=== PATIENT | female | born 1935 | race Caucasian/White ===

== ENCOUNTER 2017-09-12 22:45 | Inpatient (IN) | payer MEDICARE ==
[2017-09-12] VITALS (9 sets, daily range): BP systolic 86–130; BP diastolic 55–64; PULSE 60–101; RESP 14–18; TEMP 98.9–99.9; O2SAT 97–100
[~2017-09-12] VITALS: Ht 165.1 cm; Wt 64.5 kg
[2017-09-12] MEDS ORDERED: SODIUM CHLOR 0.9% 250 ML INJ 250 ML IV ONE (23:00)
[2017-09-12] MEDS ORDERED: SODIUM CHLOR 0.9% 1000 ML INJ 1,000 ML IV ONE ×2 (23:00)
[2017-09-12] MEDS ORDERED: SODIUM CHLORIDE 0.9% FLUSH 10 ML FLUSH IVF PRN (23:00)
[2017-09-12] MEDS ORDERED: TERBUTALINE INJ 1 MG/ML AMP SQ PRN (23:30)
[2017-09-12] MEDS ORDERED: NOREPINEPHRINE-DEXTROSE DRIP 250 ML IV PRN (23:30)
[2017-09-12 23:37] LABS: BLOOD GAS BASE EXCESS -6.7 mmol/L (-2-2); BLOOD GAS CARBOXYHEMOGLOBIN 1.5 % (0-4); BLOOD GAS HCO3 19 mmol/L (22-26); BLOOD GAS METHEMOGLOBIN 0.5 % (0-2); BLOOD GAS O2 HGB SATURATION 98 % (90-100); BLOOD GAS OXYGEN CONTENT 17.9 Vol % (12.0-20.0); BLOOD GAS PCO2 39 mmHg (38-42); BLOOD GAS PO2 418 mmHG (61-120); BLOOD GAS TOTAL HGB 12.2 G/DL (12.0-16.0); CRITICAL VALUE NO; DRAW SITE RT RADIAL; FIO2 100 %; NUMBER OF ARTERIAL PUNCTURES 2; OXYGEN DEVICE VENTILATOR; STAT YES; TEMP CORR TO 98.6; ULNAR PULSE PRESENT; VENT SETTINGS AC/14/500/PEEP5
--- NOTE | 2017-09-12 23:42 | PD ---
HPI . Respiratory distress Chief Complaint: Code Blue Time Seen by Provider: 22:51 Travel History International Travel<30 days: No Contact w/Intl Traveler<30days: No Traveled to known affect area: No History of Present Illness HPI This patient presented to us by [facility] intubated for respiratory distress. They state that they were called to the [facility] for acute respiratory distress. They found her to be hypotensive at about 80. She had agonal respirations. She was subsequently intubated by them. An IV was started and she received approximately 500 cc of IV fluids in route. 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 Done at an outside hospital. Her postoperative course was complicated by acute blood loss. She received 11 units of blood, 4 units of FFP, 3 units of cryoprecipitate it looks like she was discharged to a [facility] on about 09/03. And 2 platelet packs. She also developed atrial fibrillation which was treated with amiodarone. Anticoagulation was deferred secondary to the bleeding. She was discharged to a [facility] on about 09/03. CBC & BMP Diagram 09/12/17 22:50 Total Protein 5.2 L, Albumin 2.4 L, Calcium Level 7.3 *L, Magnesium Level 2.2, Alkaline Phosphatase 165 H, Aspartate Amino Transf (AST/SGOT) 257 H, Alanine Aminotransferase (ALT/SGPT) 175 H, Total Bilirubin 1.3 H ABG Test 09/12/17 23:24 Arterial Blood Carboxyhemoglobin 1.5 % Arterial Blood Methemoglobin 0.5 % Arterial Blood Oxygen Content 17.9 Vol % Arterial Blood Partial Pressure CO2 39 mmHg Arterial Blood Partial Pressure O2 418 mmHG H Arterial Blood pH 7.30 L Blood Gas Base Excess -6.7 mmol/L L Blood Gas HCO3 19 mmol/L L Blood Gas Hemoglobin 12.2 G/DL Blood Gas Inspired Oxygen 100 % Blood Gas Oxygen Saturation 98 % Blood Gas Ventilator Setting AC/14/500/PEEP5 Oxygen Delivery Device VENTILATOR LA 3.4 trop 0.03. CK 57 UA>>mod LE, 1 WBC CXR>>Endotracheal tube tip is just above the level of the kraig. Right subclavian central line descends into the upper right atrium. There is no evidence of pneumothorax. There is patchy mild parenchymal lung opacity bilaterally. Cardiac contours are grossly satisfactory for technique and projection. There is mild gaseous distention of the stomach This patient is on Levophed. She received 1 unit of PRBCs. We then learned that her initial blood draw was probably somehow diluted. She has had Lasix. I do not yet know the etiology of her hypotension and near respiratory arrest. [facility] Social History Tobacco Use: No Allergies-Medications (Allergen,Severity, Reaction): Coded Allergies: codeine (Verified Allergy, Unknown, 09/12/17) sulfadiazine (Verified Allergy, Unknown, 09/12/17) Reported Meds & Prescriptions Reported Meds & Active Scripts Active Reported Xanax (Alprazolam) 0.5 Mg Tab 0.5 Mg PO Q8H PRN Ultram (Tramadol HCl) 50 Mg Tab 50 Mg PO Q6H PRN Oxygen (O2) Device Liter YUNG.CANULA CONTINUOUS Oxygen Concentrator Portable Gaseous 2 L/min via Nasal Canula Continuous For 99 months [place] (Hydrocodone-Acetaminophen) 5-325 mg Tab 1 Tab PO Q4H PRN Tylenol (Acetaminophen) 325 Mg Tab 650 Mg PO Q4H PRN Keflex (Cephalexin) 500 Mg Capsule 500 Mg PO TID Duoneb (Ipratropium-Albuterol Neb) 0.5-2.5 Mg/3 Ml Neb 1 Nebule INH TID Amiodarone (Amiodarone HCl) 400 Mg Tab 400 Mg PO TID Vitamin C (Ascorbic Acid) 250 Mg Tab 500 Mg PO BID Metoprolol Tartrate 25 Mg Tab 25 Mg PO BID Docusate Sodium 100 Mg Cap 100 Mg PO BID Zinc Sulfate 220 Mg (50 Mg Zinc) Cap 220 Mg PO DAILY Potassium Chloride ER (Potassium Chloride) 20 Meq Tab 20 Meq PO DAILY Potassium Chloride ER (Potassium Chloride) 10 Meq Cap 10 Meq PO DAILY Polyethylene Glycol 3350 Powder (Polyethylene Glycol) 17 Gram Pow 17 Gm PO DAILY Multi-Vitamin Daily (Multiple Vitamin) 1 Tab Tab 1 Tab PO DAILY Lasix (Furosemide) 20 Mg Tab 20 Mg PO DAILY Lasix (Furosemide) 40 Mg Tab 40 Mg PO DAILY PRN Famotidine 20 Mg Tab 20 Mg PO DAILY Atorvastatin (Atorvastatin Calcium) 40 Mg Tab 40 Mg PO HS Aspirin 81 Mg Chew 81 Mg CHEW DAILY Review of Systems ROS Limitations: Clinical Condition, Unresponsive Physical Exam Narrative GENERAL: She is unresponsive to any painful stimuli. SKIN: Pale. She has scattered bruising including the left axilla, right groin area, left groin area. She has a wound on the left medial 5 which is draining purulent and malodorous material. HEAD: Normocephalic. Atraumatic. EYES: Pupils are fixed. No reaction to light. ENT: No nasal bleeding or discharge. Mucous membranes pink and moist. NECK: Trachea midline. Full range of motion without pain.. CARDIOVASCULAR: Regular rate and rhythm. Her first blood pressure here was normal but she has subsequently dropped back down to a systolic of about 80. RESPIRATORY: Intubated. Initial examination showed breath sounds laterally on the right than the left. The tube was withdrawn by 3 cm. Breath sounds are now equal. GASTROINTESTINAL: Abdomen soft. Nondistended. MUSCULOSKELETAL: No obvious deformities. NEUROLOGICAL: [place] Coma Score is 3. She is flaccid. PSYCHIATRIC: Unable to evaluate Data Data Last Documented VS Vital Signs Date Time Temp Pulse Resp B/P (MAP) Pulse Ox O2 Delivery O2 Flow Rate FiO2 09/13/17 00:28 65 14 91/61 (71) 95 Ventilator 60 09/13/17 00:00 98.7 Orders Orders Electrocardiogram (09/12/17 22:51) Ckmb (Isoenzyme) Profile (09/12/17 22:51) Complete Blood Count With Diff (09/12/17 22:51) Comprehensive Metabolic Panel (09/12/17 22:51) Magnesium (Mg) (09/12/17 22:51) Prothrombin Time / Inr (Pt) (09/12/17 22:51) Act Partial Throm Time (Ptt) (09/12/17 22:51) Troponin I (09/12/17 22:51) Chest, Single Ap (09/12/17 22:51) Ecg Monitoring (09/12/17 22:51) Bilateral Bp Monitoring (09/12/17 22:51) Iv Access Insert/Monitor (09/12/17 22:51) Oximetry (09/12/17 22:51) Oxygen Administration (09/12/17 22:51) Sodium Chloride 0.9% Flush (Ns Flush) (09/12/17 23:00) Sodium Chlor 0.9% 1000 Ml Inj (Ns 1000 M (09/12/17 23:00) Sodium Chlor 0.9% 1000 Ml Inj (Ns 1000 M (09/12/17 23:00) Insert Temp Sensing Romano Cath (09/12/17 22:51) Red Blood Cells (Rbc) (09/12/17 22:54) Blood Product Administration (09/12/17 22:54) Sodium Chlor 0.9% 250 Ml Inj (Ns 250 Ml (09/12/17 23:00) Type And Screen (09/12/17 22:54) Lactic Acid Sepsis Protocol (09/12/17 23:00) Urinalysis - C+S If Indicated (09/12/17 23:00) ^ Infusion (09/12/17 ) Norepinephrine-Dextrose Drip (Levophed-D (09/12/17 23:30) Terbutaline Inj (Brethine Inj) (09/12/17 23:30) Blood Culture (09/12/17 23:21) Wound Culture And Gram Stain (09/12/17 23:27) Arterial Blood Gas (Abg) (09/12/17 23:24) Neurological Rass Scale Q30MX2,Q2HX4,Q4H (09/12/17 23:49) ^ Infusion (09/12/17 23:49) Fentanyl Drip (Fentanyl Drip) (09/13/17 00:00) Midazolam 100 Mg/100 Ml Inj (Versed Inj) (09/13/17 00:00) Neurological Rass Scale Q30MX2,Q2HX4,Q4H (09/12/17 23:49) ^ Orogastric Tube (09/12/17 23:50) Restraints Non-Violent VARGAS.Q3H (09/12/17 23:50) Midazolam 100 Mg/100 Ml Inj (Versed Inj) (09/12/17 23:55) Fentanyl Drip (Fentanyl Drip) (09/12/17 23:56) D-Dimer (09/13/17 00:58) Admit Order (Ed Use Only) (09/13/17 ) Alcohol Rubber / Telemetry VARGAS.Q8H (09/13/17 00:58) Vital Signs (Adult) Q4H (09/13/17 00:58) Diet Npo (09/13/17 Breakfast) Activity Bed Rest (09/13/17 00:58) Notify Dr: Other (09/13/17 00:58) Labs Laboratory Tests Test 09/12/17 22:50 09/12/17 23:24 09/12/17 23:28 White Blood Count 10.6 TH/MM3 Red Blood Count 4.12 MIL/MM3 Hemoglobin 12.4 GM/DL Hematocrit 38.4 % Mean Corpuscular Volume 93.2 FL Mean Corpuscular Hemoglobin 30.0 PG Mean Corpuscular Hemoglobin Concent 32.2 % Red Cell Distribution Width 20.9 % Platelet Count 188 TH/MM3 Mean Platelet Volume 8.8 FL Neutrophils (%) (Auto) 87.6 % Lymphocytes (%) (Auto) 4.3 % Monocytes (%) (Auto) 7.7 % Eosinophils (%) (Auto) 0.2 % Basophils (%) (Auto) 0.2 % Neutrophils # (Auto) 9.2 TH/MM3 Lymphocytes # (Auto) 0.5 TH/MM3 Monocytes # (Auto) 0.8 TH/MM3 Eosinophils # (Auto) 0.0 TH/MM3 Basophils # (Auto) 0.0 TH/MM3 CBC Comment DIFF FINAL Differential Comment Prothrombin Time 18.3 SEC Prothromb Time International Ratio 1.6 RATIO Activated Partial Thromboplast Time 30.2 SEC Blood Urea Nitrogen 43 MG/DL Creatinine 1.97 MG/DL Random Glucose 151 MG/DL Total Protein 5.2 GM/DL Albumin 2.4 GM/DL Calcium Level 7.3 MG/DL Magnesium Level 2.2 MG/DL Alkaline Phosphatase 165 U/L Aspartate Amino Transf (AST/SGOT) 257 U/L Alanine Aminotransferase (ALT/SGPT) 175 U/L Total Bilirubin 1.3 MG/DL Sodium Level 144 MEQ/L Potassium Level 5.0 MEQ/L Chloride Level 109 MEQ/L Carbon Dioxide Level 23.6 MEQ/L Anion Gap 11 MEQ/L Estimat Glomerular Filtration Rate 24 ML/MIN Protein Corrected Calcium 8.3 MG/DL Total Creatine Kinase 57 U/L Troponin I 0.03 NG/ML Blood Gas Puncture Site RT RADIAL Blood Gas Patient Temperature 98.6 Blood Gas HCO3 19 mmol/L Blood Gas Base Excess -6.7 mmol/L Blood Gas Oxygen Saturation 98 % Arterial Blood pH 7.30 Arterial Blood Partial Pressure CO2 39 mmHg Arterial Blood Partial Pressure O2 418 mmHG Arterial Blood Oxygen Content 17.9 Vol % Arterial Blood Carboxyhemoglobin 1.5 % Arterial Blood Methemoglobin 0.5 % Blood Gas Hemoglobin 12.2 G/DL Oxygen Delivery Device VENTILATOR Blood Gas Ventilator Setting AC/14/500/PEEP5 Blood Gas Inspired Oxygen 100 % Urine Color YELLOW Urine Turbidity HAZY Urine pH 5.0 Urine Specific [place] 1.019 Urine Protein TRACE mg/dL Urine Glucose (UA) NEG mg/dL Urine Ketones NEG mg/dL Urine Occult Blood SMALL Urine Nitrite NEG Urine Bilirubin NEG Urine Urobilinogen 2.0 MG/DL Urine Leukocyte Esterase MOD Urine RBC 1 /hpf Urine WBC 1 /hpf Urine Squamous Epithelial Cells 4 /hpf Urine Transitional Epithelial Cells 1 /hpf Urine Hyaline Casts 21 /lpf Urine Mucus FEW /lpf Microscopic Urinalysis Comment CATH-CULT NOT IND Lactic Acid Level 3.4 mmol/L MDM Medical Decision Making Medical Screen Exam Complete: Yes Emergency Medical Condition: Yes Medical Record Reviewed: Yes (please see the HPI or review of her [facility] record.) Interpretation(s) EKG shows sinus rhythm with a rate of 61. Q waves in the inferior leads. Minimal ST segment elevation in the inferior leads. Differential Diagnosis My differential diagnosis of hypotension includes but is not limited to acute blood loss, gastroenteritis, medication effect Narrative Course Patient presented to us almost a code. She reportedly had agonal respirations and was intubated at the scene. She was hypotensive with a systolic blood pressure of about 80. GCS is 3. Her blood looked like Lalo-Aid. 2 units of emergency release blood was ordered. Preparations were made for central line. The lab was called to say that the patient's initial blood and subsequent blood looked very different. The initial blood that was sent to the lab was drawn by the nursing staff when they placed an IV line. The blood was drawn before they ever flush the line or anything. This blood looked like Lalo-Aid. A second sample blood was sent to the lab off of the central line. That blood looks like normal blood. It does not look thin. This patient has started biting her to. She was sedated by EMS for the intubation. Critical Care Narrative Aggregate critical care time was 60 minutes. Time to perform other separately billable procedures was not included in the critical care time. My time did not include minutes spent treating any other patients simultaneously or on activities that did not directly contribute to the patient's treatment. The services I provided to this patient were to treat and/or prevent clinically significant deterioration due to respiratory failure, hypotension, profound anemia I provided critical care services requiring my management, as noted below: Chart data review, documentation time, medication orders and management, vital sign assessments/reviewing monitor data, ordering and reviewing lab tests, ordering and interpreting/reviewing x-rays and diagnostic studies, care of the patient and discussion of the patient with the admitting physicians Procedures Procedure Narrative CENTRAL VENOUS LINE: The site was prepped with Betadine and sterilely draped. The deep vein was cannulated using normal Seldinger technique. A triple lumen central line was placed in the right subclavian site and secured with simple interrupted suture. Blood was aspirated from all 3 ports. The site was sterilely dressed. The patient tolerated the procedure well. Diagnosis Primary Impression: Hypotension Qualified Codes: I95.9 - Hypotension, unspecified Additional Impressions: Respiratory insufficiency Lactic acidosis Admitting Information Admitting Physician Requests: Admit Condition: Serious Deisy Ochoa MD Sep 12, 2017 23:42
[2017-09-12] MEDS ORDERED: MIDAZOLAM 100 MG/100 ML INJ 100 ML ONE (23:55)
[2017-09-12] MEDS ORDERED: fentaNYL DRIP 250 ML ONE (23:56)
[2017-09-13] VITALS (22 sets, daily range): BP systolic 79–118; BP diastolic 41–80; PULSE 62–78; RESP 14–44; TEMP 98.7–99.9; O2SAT 92–100
[2017-09-13] MEDS ORDERED: fentaNYL DRIP 250 ML IV PRN
[2017-09-13] MEDS ORDERED: MIDAZOLAM 100 MG/100 ML INJ 100 ML IV PRN
[2017-09-13 00:01] LABS: AUTOMATED NEUTROPHIL # 9.2 TH/MM3 (1.8-7.7); BASOPHIL % 0.2 % (0.0-2.0); EOSINOPHIL % 0.2 % (0.0-4.0); HEMATOCRIT 38.4 % (35.0-46.0); HEMO FLAGS DIFF FINAL; LYMPH % 4.3 % (9.0-44.0); LYMPHOCYTE # 0.5 TH/MM3 (1.0-4.8); MEAN CELL VOLUME 93.2 FL (80.0-100.0); MEAN CORPUSCULAR HGB CONC 32.2 % (32.0-36.0); MONO % 7.7 % (0.0-8.0); NEUT % 87.6 % (16.0-70.0); PLATELET COUNT 188 TH/MM3 (150-450); RED BLOOD COUNT 4.12 MIL/MM3 (4.00-5.30); RED CELL DISTRIBUTION WIDTH 20.9 % (11.6-17.2); WHITE BLOOD COUNT 10.6 TH/MM3 (4.0-11.0)
[2017-09-13 00:04] LABS: APTT (PATIENT) 30.2 SEC (24.3-30.1); INTERNATIONAL NORMALIZED RATIO 1.6 RATIO; PROTHROMBIN TIME - PATIENT 18.3 SEC (9.8-11.6)
[2017-09-13] MEDS ORDERED: OXYGENDME NAS.CANULA (00:05)
[2017-09-13] MEDS ORDERED: TYLE325T PO (00:05)
[2017-09-13] MEDS ORDERED: ASPI81CH CHEW (00:05)
[2017-09-13] MEDS ORDERED: POLY17S PO (00:05)
[2017-09-13] MEDS ORDERED: ZINC220C3 PO (00:05)
[2017-09-13] MEDS ORDERED: VITA250T3 PO (00:05)
[2017-09-13] MEDS ORDERED: METO25TA3 PO (00:05)
[2017-09-13] MEDS ORDERED: FURO1TAB60 PO (00:05)
[2017-09-13] MEDS ORDERED: ATOR40TA16 PO (00:05)
[2017-09-13] MEDS ORDERED: IPRASOL INH (00:05)
[2017-09-13] MEDS ORDERED: MULT-65 PO (00:05)
[2017-09-13] MEDS ORDERED: POTA10CA PO (00:05)
[2017-09-13] MEDS ORDERED: POTA-163 PO (00:05)
[2017-09-13] MEDS ORDERED: NORC5TAB PO (00:05)
[2017-09-13] MEDS ORDERED: ULTR50TA5 PO (00:05)
[2017-09-13] MEDS ORDERED: DOCU100C PO (00:05)
[2017-09-13] MEDS ORDERED: AMIO400T PO (00:05)
[2017-09-13] MEDS ORDERED: CEPH-460 PO (00:05)
[2017-09-13] MEDS ORDERED: FURO1TAB62 PO (00:05)
[2017-09-13] MEDS ORDERED: FAMO20TA2 PO (00:05)
[2017-09-13] MEDS ORDERED: ALPR.5 PO (00:05)
[2017-09-13 00:14] LABS: BLOOD, URINE SMALL (NEG); GLUCOSE,URINE NEG (NEG); HYALINE CAST, URINE 21 /lpf (RARE); KETONE, URINE NEG (NEG); MUCUS URINE FEW /lpf (OCC); NITRITE,URINE NEG (NEG); SQUAMOUS EPITHELIAL CELL URINE 4 /hpf (0-5); TRANSITIONAL EPI CELLS, URINE 1 /hpf; URINE COLOR YELLOW (YELLW/STRAW)
[2017-09-13 00:15] LABS: COMMENT (UR) CATH-CULT NOT IND; CULTURE IF INDICATED CATH CULTURE NOT IND
--- NOTE | 2017-09-13 00:29 | RADRPT ---
EXAM DATE/TIME: 09/12/2017 23:52 [facility] COMPARISON: No previous studies available for comparison. INDICATIONS : E-T and central line placement. MEDICAL HISTORY : Unknown SURGICAL HISTORY : CABG. ENCOUNTER: Initial ACUITY: 1 day PAIN SCORE: Non-responsive. LOCATION: Bilateral chest FINDINGS: Endotracheal tube tip is just above the level of the kraig. Right subclavian central line descends i nto the upper right atrium. There is no evidence of pneumothorax. There is patchy mild parenchymal ronald ng opacity bilaterally. Cardiac contours are grossly satisfactory for technique and projection. There is mild gaseous distention of the stomach CONCLUSION: Central line is a bit deep. Jensen Keith MD on September 13, 2017 at 0:24 Board Certified Radiologist. This report was verified electronically.
[2017-09-13 00:30] LABS: BICARBONATE 23.6 MEQ/L (21.0-32.0); CALCIUM-PROTEIN CORRECTED 8.3 MG/DL (8.5-10.1); MAGNESIUM 2.2 MG/DL (1.5-2.5); TOTAL BILIRUBIN ADULT 1.3 MG/DL (0.2-1.0)
[2017-09-13] MEDS ORDERED: CALCIUM GLUCONATE INJ 2 GM in SODIUM CHLORIDE 0.9% INJ 100 ML IV ONE (01:00)
--- NOTE | 2017-09-13 01:09 | HHI.HP ---
HPI Service Critical Care Medicine Primary Care Physician Ozzy Farrell MD Admission Diagnosis hypotension, resp insufficiency, lactic acidosis Diagnosis: Travel History International Travel<30 Days: No Contact w/Intl Traveler <30 Da: No Traveled to Known Affected Are: No History of Present Illness 82-year-old unfortunate female underwent CABG procedure last month at [facility]. She was at the rehabilitation facility today when she started complaining of shortness of breath. When you EVAC arrived patient found patient in the agonal breathing severely hypoxemic and she was intubated for respiratory distress. She was also found to be hypotensive with systolic blood pressure 80s. Her CABG postoperative course was complicated by acute blood loss. She received 11 units of blood, 4 units of FFP, 2 packs of platelets, 3 units of cryoprecipitate and was [facility]. Postoperatively she has developed atrial fibrillation which was treated with amiodarone. Anticoagulation was deferred secondary to the bleeding. Her initial presentation prior CABG was complaining of severe dysphagia. On the CAT scan of the chest performed in the emergency department there is severe house hernia. She has no prior history of pulmonary diseases, no history of smoking. Review of Systems ROS Unobtainable patient sedated and intubated Past Family Social History Allergies: Coded Allergies: codeine (Verified Allergy, Unknown, 09/12/17) sulfadiazine (Verified Allergy, Unknown, 09/12/17) Past Medical History Coronary artery disease status post CABG 08/2017 Hiatal hernia Anemia Past Surgical History CABG 2016 at [facility] Reported Medications Reported Meds & Active Scripts Active Reported Xanax (Alprazolam) 0.5 Mg Tab 0.5 Mg PO Q8H PRN Ultram (Tramadol HCl) 50 Mg Tab 50 Mg PO Q6H PRN Oxygen (O2) Device Liter YUNG.CANULA CONTINUOUS Oxygen Concentrator Portable Gaseous 2 L/min via Nasal Canula Continuous For 99 months [place] (Hydrocodone-Acetaminophen) 5-325 mg Tab 1 Tab PO Q4H PRN Tylenol (Acetaminophen) 325 Mg Tab 650 Mg PO Q4H PRN Keflex (Cephalexin) 500 Mg Capsule 500 Mg PO TID Duoneb (Ipratropium-Albuterol Neb) 0.5-2.5 Mg/3 Ml Neb 1 Nebule INH TID Amiodarone (Amiodarone HCl) 400 Mg Tab 400 Mg PO TID Vitamin C (Ascorbic Acid) 250 Mg Tab 500 Mg PO BID Metoprolol Tartrate 25 Mg Tab 25 Mg PO BID Docusate Sodium 100 Mg Cap 100 Mg PO BID Zinc Sulfate 220 Mg (50 Mg Zinc) Cap 220 Mg PO DAILY Potassium Chloride ER (Potassium Chloride) 20 Meq Tab 20 Meq PO DAILY Potassium Chloride ER (Potassium Chloride) 10 Meq Cap 10 Meq PO DAILY Polyethylene Glycol 3350 Powder (Polyethylene Glycol) 17 Gram Pow 17 Gm PO DAILY Multi-Vitamin Daily (Multiple Vitamin) 1 Tab Tab 1 Tab PO DAILY Lasix (Furosemide) 20 Mg Tab 20 Mg PO DAILY Lasix (Furosemide) 40 Mg Tab 40 Mg PO DAILY PRN Famotidine 20 Mg Tab 20 Mg PO DAILY Atorvastatin (Atorvastatin Calcium) 40 Mg Tab 40 Mg PO HS Aspirin 81 Mg Chew 81 Mg CHEW DAILY Active Ordered Medications Current Medications Medications (Trade) Dose Ordered Sig/Joaquín Route PRN Reason Start Time Stop Time Status Last Admin Dose Admin Sodium Chloride (NS Flush) 2 ml UNSCH PRN IVF FLUSH AFTER USING IV ACCESS 09/12/17 23:00 Sodium Chloride 250 ml @ 15 mls/hr ONCE ONCE IV 09/12/17 23:00 09/13/17 15:39 09/12/17 23:41 Norepinephrine Bitartrate 250 ml @ 7.5 mls/hr TITRATE PRN IV Blood pressure management 09/12/17 23:30 09/12/17 23:39 Terbutaline Sulfate (Brethine Inj) 1 mg UNSCH PRN SQ For Extravasation 09/12/17 23:30 Fentanyl Citrate 250 ml @ 5 mls/hr TITRATE PRN IV SEDATION 09/13/17 00:00 09/13/17 00:24 Midazolam HCl 100 ml @ 2 mls/hr TITRATE PRN IV SEDATION 09/13/17 00:00 09/13/17 00:25 Aspirin (Aspirin Chew) 81 mg DAILY CHEW 09/13/17 09:00 Atorvastatin Calcium (Lipitor) 40 mg HS PO 09/13/17 21:00 Zinc Sulfate (Zinc Sulfate) 220 mg DAILY PO 09/13/17 09:00 Ascorbic Acid (Vitamin C) 500 mg BID PO 09/13/17 09:00 Multivitamins (Theragran) 1 tab DAILY PO 09/13/17 09:00 Sodium Chloride 1,000 ml @ 84 mls/hr [id number] IV 09/13/17 01:03 09/13/17 01:52 Sodium Chloride (NS Flush) 2 ml UNSCH PRN IV FLUSH FLUSH AFTER USING IV ACCESS 09/13/17 01:15 Sodium Chloride (NS Flush) 2 ml BID IV FLUSH 09/13/17 09:00 Acetaminophen (Tylenol) 650 mg Q6H PRN PO PAIN 1-5 AND/OR FEVER >101F 09/13/17 01:15 Morphine Sulfate (Morphine Inj) 2 mg Q2H PRN IV PUSH PAIN SCALE 6 TO 10 09/13/17 01:15 Famotidine (Pepcid Inj) 10 mg Q12HR IV PUSH 09/13/17 09:00 Midazolam HCl (Versed Inj) 2 mg Q1H PRN IV PUSH SEDATION 09/13/17 01:15 Artificial Tears (Tears Naturale Opth Soln) 1 drop TID EACH EYE 09/13/17 09:00 Ondansetron HCl (Zofran Inj) 4 mg Q6H PRN IV PUSH NAUSEA OR VOMITING 09/13/17 01:15 Albuterol/ Ipratropium (Duoneb Neb) 1 ampule Q6HR NEB INH 09/13/17 04:00 Albuterol/ Ipratropium (Duoneb Neb) 1 ampule Q2HR NEB PRN INH WHEEZING 09/13/17 01:15 Heparin Sodium (Porcine) (Heparin Inj) 5,000 units Q8HR SQ 09/13/17 06:00 Miscellaneous Information 1 [id number] XX 09/13/17 01:15 Chlorhexidine Gluconate (Chlorhexidine 2% Cloth) 3 pack Taper DAILY@04 TOP 09/13/17 04:00 09/09/18 03:59 Chlorhexidine Gluconate (Chlorhexidine 2% Cloth) 3 pack UNSCH PRN TOP HYGIENIC CARE 09/13/17 01:15 Senna/Docusate Sodium (Celeste-Colace) 1 tab BID PO 09/13/17 09:00 Magnesium Hydroxide (Milk Of Magnesia Liq) 30 ml Q12H PRN PO Mild constipation 09/13/17 01:15 Sennosides (Senokot) 17.2 mg Q12H PRN PO Moderate constipation 09/13/17 01:15 Bisacodyl (Dulcolax Supp) 10 mg DAILY PRN RECTAL SEVERE CONSITIPATION 09/13/17 01:15 Lactulose (Lactulose Liq) 30 ml DAILY PRN PO SEVERE CONSITIPATION 09/13/17 01:15 Piperacillin Sod/ Tazobactam Sod 100 ml @ 200 mls/hr Q6H IV 09/13/17 02:00 Pharmacy Profile Note 0 ml @ 0 mls/hr UNSCH OTHER 09/13/17 01:45 Vancomycin HCl 1500 mg/Sodium Chloride 515 ml @ 257.5 mls/ hr ONCE ONCE IV 09/13/17 02:00 09/13/17 03:59 Family History No family history of early coronary artery disease Social History Negative for tobacco, alcohol, or illicit drug abuse Patient is and lives with her at home independently Physical Exam Vital Signs Vital Signs Date Time Temp Pulse Resp B/P (MAP) Pulse Ox O2 Delivery O2 Flow Rate FiO2 09/13/17 00:28 65 14 91/61 (71) 95 Ventilator 60 09/13/17 00:00 98.7 65 14 95/63 95 09/12/17 23:59 63 18 95/60 (72) 97 Ventilator 40 09/12/17 23:45 98.9 65 14 97/64 97 09/12/17 23:40 100 40 09/12/17 23:39 62 96/56 09/12/17 23:35 99.9 62 14 96/56 (69) 100 Ventilator 100 09/12/17 23:34 100 Ventilator 100 09/12/17 23:34 100 Ventilator 100 09/12/17 23:30 99.1 65 14 91/61 100 09/12/17 23:20 101 14 86/55 (65) 99 Ventilator 100 09/12/17 23:04 100 09/12/17 22:52 99.7 60 14 130/59 (82) 100 09/12/17 22:50 100 100 Physical Exam GENERAL: Elderly female sedated and intubated SKIN: Warm and dry. Purulent discharge of the left thigh, status post sternotomy with a healing wound HEAD: Normocephalic. EYES: No scleral icterus. No injection or drainage. NECK: Supple, trachea midline. No JVD or lymphadenopathy. CARDIOVASCULAR: Regular rate and rhythm without murmurs, gallops, or rubs. RESPIRATORY: Breath sounds equal bilaterally. No accessory muscle use. GASTROINTESTINAL: Abdomen soft, non-tender, nondistended. MUSCULOSKELETAL: No cyanosis, or edema. There is appointment with purulent discharge on her left thigh BACK: Nontender without obvious deformity. NEURO EXAM: Mental Status: Sedated and intubated patient Cranial Nerves: Pupils are round, reactive to light. 3 mm bilaterally Reflexes: Biceps, patellar, and Achilles are 2/4 bilaterally. No clonus. Laboratory Laboratory Tests Test 09/12/17 22:50 09/12/17 23:24 09/12/17 23:28 White Blood Count 10.6 Red Blood Count 4.12 Hemoglobin 12.4 Hematocrit 38.4 Mean Corpuscular Volume 93.2 Mean Corpuscular Hemoglobin 30.0 Mean Corpuscular Hemoglobin Concent 32.2 Red Cell Distribution Width 20.9 Platelet Count 188 Mean Platelet Volume 8.8 Neutrophils (%) (Auto) 87.6 Lymphocytes (%) (Auto) 4.3 Monocytes (%) (Auto) 7.7 Eosinophils (%) (Auto) 0.2 Basophils (%) (Auto) 0.2 Neutrophils # (Auto) 9.2 Lymphocytes # (Auto) 0.5 Monocytes # (Auto) 0.8 Eosinophils # (Auto) 0.0 Basophils # (Auto) 0.0 CBC Comment DIFF FINAL Differential Comment Prothrombin Time 18.3 Prothromb Time International Ratio 1.6 Activated Partial Thromboplast Time 30.2 Blood Urea Nitrogen 43 Creatinine 1.97 Random Glucose 151 Total Protein 5.2 Albumin 2.4 Calcium Level 7.3 Magnesium Level 2.2 Alkaline Phosphatase 165 Aspartate Amino Transf (AST/SGOT) 257 Alanine Aminotransferase (ALT/SGPT) 175 Total Bilirubin 1.3 Sodium Level 144 Potassium Level 5.0 Chloride Level 109 Carbon Dioxide Level 23.6 Anion Gap 11 Estimat Glomerular Filtration Rate 24 Protein Corrected Calcium 8.3 Total Creatine Kinase 57 Troponin I 0.03 Blood Gas Puncture Site RT RADIAL Blood Gas Patient Temperature 98.6 Blood Gas HCO3 19 Blood Gas Base Excess -6.7 Blood Gas Oxygen Saturation 98 Arterial Blood pH 7.30 Arterial Blood Partial Pressure CO2 39 Arterial Blood Partial Pressure O2 418 Arterial Blood Oxygen Content 17.9 Arterial Blood Carboxyhemoglobin 1.5 Arterial Blood Methemoglobin 0.5 Blood Gas Hemoglobin 12.2 Oxygen Delivery Device VENTILATOR Blood Gas Ventilator Setting AC/14/500/PEEP5 Blood Gas Inspired Oxygen 100 Urine Color YELLOW Urine Turbidity HAZY Urine pH 5.0 Urine Specific [place] 1.019 Urine Protein TRACE Urine Glucose (UA) NEG Urine Ketones NEG Urine Occult Blood SMALL Urine Nitrite NEG Urine Bilirubin NEG Urine Urobilinogen 2.0 Urine Leukocyte Esterase MOD Urine RBC 1 Urine WBC 1 Urine Squamous Epithelial Cells 4 Urine Transitional Epithelial Cells 1 Urine Hyaline Casts 21 Urine Mucus FEW Microscopic Urinalysis Comment CATH-CULT NOT IND Lactic Acid Level 3.4 Date/Time Source Procedure Growth Status 09/12/17 23:35 Wound Thigh Gram Stain Pending Received 09/12/17 23:35 Wound Thigh Wound Culture Pending Received Result Diagram: 09/12/17224909/12/172249 Caprini VTE Risk Assessment Caprini VTE Risk Assessment: Mod/High Risk (score >= 2) Caprini Risk Assessment Model Point Value = 1 Point Value = 2 Point Value = 3 Point Value = 5 Age 41-60 Minor surgery BMI > 25 kg/m2 Swollen legs Varicose veins or History of unexplained or recurrent spontaneous Oral contraceptives or hormone replacement Sepsis (< 1 month) Serious lung disease, including pneumonia (< 1 month) Abnormal pulmonary function Acute myocardial infarction Congestive heart failure (< 1 month) History of inflammatory bowel disease Medical patient at bed rest Age 61-74 Arthroscopic surgery Major open surgery (> 45 min) Laparoscopic surgery (> 45 min) Malignancy Confined to bed (> 72 hours) Immobilizing plaster cast Central venous access Age >= 75 History of VTE Family history of VTE Factor V Leiden Prothrombin [id number] Lupus anticoagulant Anticardiolipin antibodies Elevated serum homocysteine Heparin-induced thrombocytopenia Other congenital or acquired thrombophilia Stroke (< 1 month) Elective arthroplasty Hip, pelvis, or leg fracture Acute spinal cord injury (< 1 month) Prophylaxis Regimen Total Risk Factor Score Risk Level Prophylaxis Regimen 0-1 Low Early ambulation 2 Moderate Order ONE of the following: *Sequential Compression Device (SCD) *Heparin 5000 units SQ BID 3-4 Higher Order ONE of the following medications: *Heparin 5000 units SQ TID *Enoxaparin/Lovenox 40 mg SQ daily (WT < 150 kg, CrCl > 30 mL/min) *Enoxaparin/Lovenox 30 mg SQ daily (WT < 150 kg, CrCl > 10-29 mL/min) *Enoxaparin/Lovenox 30 mg SQ BID (WT < 150 kg, CrCl > 30 mL/min) AND/OR *Sequential Compression Device (SCD) 5 or more Highest Order ONE of the following medications: *Heparin 5000 units SQ TID (Preferred with Epidurals) *Enoxaparin/Lovenox 40 mg SQ daily (WT < 150 kg, CrCl > 30 mL/min) *Enoxaparin/Lovenox 30 mg SQ daily (WT < 150 kg, CrCl > 10-29 mL/min) *Enoxaparin/Lovenox 30 mg SQ BID (WT < 150 kg, CrCl > 30 mL/min) AND *Sequential Compression Device (SCD) Assessment and Plan Assessment and Plan Respiratory failure - Hypoxemic - Mechanical ventilation - CT chest to be related for structural lung disease - Considering VQ scan no improvement - CXR and ABG daily Hypotension - Sepsis - Wound infection - Blood cultures, wound culture - Vancomycin and Zosyn empirically - De-escalate per sensitivity - IV fluids resuscitation - Levophed to keep MEP above 65 Coronary artery disease - 2-D echo - Series of troponin - Series of EKGs Decreased perfusion to lower extremities - Due to shock?? - Arterial Dopplers Acute kidney injury - Unknown baseline - IV hydration - Strict I's and O's - Monitor electrolytes and creatinine level DVT GI prophylaxis - Teds SCDs - Subcutaneous heparin - Pepcid Critical Care: The total critical care time was 35 minutes. Time to perform other separately billable procedures was not included in the critical care time. Blair Rapp MD Sep 13, 2017 1:09 am
[2017-09-13] MEDS ORDERED: LACTULOSE SYRUP 20 GM/30 ML CUP PO PRN (01:15)
[2017-09-13] MEDS ORDERED: MAGNESIUM HYDROXIDE SUSP 30 ML CUP PO PRN (01:15)
[2017-09-13] MEDS ORDERED: ACETAMINOPHEN 325 MG TAB PO PRN (01:15)
[2017-09-13] MEDS ORDERED: ONDANSETRON HCL 4 MG/2 ML VIAL IV PUSH PRN (01:15)
[2017-09-13] MEDS ORDERED: RESP: ALBUTEROL 2.5 MG/IPRATROPIUM 0.5 MG NEB (PRN) INH (01:15)
[2017-09-13] MEDS ORDERED: SODIUM CHLORIDE 0.9% FLUSH 10 ML FLUSH IV FLUSH PRN (01:15)
[2017-09-13] MEDS ORDERED: MIDAZOLAM HCL 2 MG/2 ML VIAL IV PUSH PRN (01:15)
[2017-09-13] MEDS ORDERED: BISACODYL 10 MG SUPP RECTAL PRN (01:15)
[2017-09-13] MEDS ORDERED: MORPHINE SULFATE 4 MG/ML INJ IV PUSH PRN (01:15)
[2017-09-13] MEDS ORDERED: CHLORHEXIDINE GLUCONATE 2 % 1 PACK (2 CLOTHS) TOP PRN (01:15)
[2017-09-13] MEDS ORDERED: SENNOSIDES 8.6 MG TAB PO PRN (01:15)
[2017-09-13] MEDS ORDERED: MISCELLANEOUS NURSING INFORMATION XX SCH (01:15)
[2017-09-13 01:34] LABS: LACTIC ACID GHOST NOT REPORTABLE
[2017-09-13] MEDS ORDERED: SODIUM CHLOR 0.9% 1000 ML INJ 1,000 ML IV ONE ×2 (01:36)
[2017-09-13] MEDS ORDERED: Vancomycin Consult Pharmacy 1 EA OTHER SCH (01:45)
[2017-09-13] MEDS ORDERED: VANCOMYCIN INJ 1,000 MG in SODIUM CHLOR 0.9% 250 ML INJ 250 ML IV SCH (01:45)
[2017-09-13] MEDS: SODIUM CHLOR 0.9% 1000 ML INJ 1,000 ML IV SCH ×2 (01:52→12:58)
[2017-09-13] MEDS ORDERED: VANCOMYCIN 1,500 MG/NS 500 ML IV ONE ×2 (02:00)
--- NOTE | 2017-09-13 03:02 | RADRPT ---
EXAM DATE/TIME: 09/13/2017 02:46 [facility] COMPARISON: No previous studies available for comparison. INDICATIONS : Altered mental status. Respiratory distress. RADIATION DOSE: 56.35 CTDIvol (mGy) MEDICAL HISTORY : Non-responsive. SURGICAL HISTORY : Non-responsive. ENCOUNTER: Initial ACUITY: 1 day PAIN SCALE: Non-responsive LOCATION: cranial TECHNIQUE: Multiple contiguous axial images were obtained of the head. Using automated exposure control and adj ustment of the mA and/or kV according to patient size, radiation dose was kept as low as reasonably a chievable to obtain optimal diagnostic quality images. DICOM format image data is available electro nically for review and comparison. 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 There also appears to be an old i nfarct in the paramedian right nhung. There is no evidence of intracranial mass or hemorrhage. There i s nothing to suggest acute infarction. Mild symmetric chronic-appearing white matter hypodensity is n oted. Extracranial structures are grossly intact. CONCLUSION: No acute intracranial findings Jensen Keith MD on September 13, 2017 at 2:59 Board Certified Radiologist. This report was verified electronically.
--- NOTE | 2017-09-13 03:08 | RADRPT ---
EXAM DATE/TIME: 09/13/2017 02:48 [facility] COMPARISON: CHEST SINGLE AP, September 12, 2017, 23:52. INDICATIONS : Respiratory distress. RADIATION DOSE: 5.4 CTDIvol (mGy) MEDICAL HISTORY : Non-responsive. SURGICAL HISTORY : CABG ENCOUNTER: Initial ACUITY: 1 day PAIN SCALE: Non-responsive LOCATION: chest TECHNIQUE: Volumetric scanning of the chest was performed. Using automated exposure control and adjustment of t he mA and/or kV according to patient size, radiation dose was kept as low as reasonably achievable to obtain optimal diagnostic quality images. DICOM format image data is available electronically for r eview and comparison. Follow-up recommendations for detected pulmonary nodules are based at a minimum on nodule size and pa tient risk factors according to Fleischner Society Guidelines. FINDINGS: LUNGS: Patchy bilateral air space infiltrates are present, mainly in the lower lung zones. Effusion is prese nt, mainly on the left with adjacent compressive atelectasis. PLEURAE: Small pleural effusion on the left. Minimal effusion on the right. MEDIASTINUM: Large hiatal hernia. No evidence of mediastinal mass. Central line tip extends into the low right atr ium. Endotracheal tube tip extends into the right mainstem bronchus AXILLAE: Within normal limits. No lymphadenopathy. MUSCULOSKELETAL: Within normal limits for patient age. MISCELLANEOUS: The visualized upper abdominal organs demonstrate no acute abnormality. CONCLUSION: Endotracheal tube needs to be retracted by 2-3 cm. Central line needs to be retracted by 4-5 cm. Patchy lower lobe air space infiltrates. Left effusion with adjacent compressive atelectasis. Jensen Keith MD on September 13, 2017 at 3:01 Board Certified Radiologist. This report was verified electronically.
[2017-09-13] MEDS: RESP: ALBUTEROL 2.5 MG/IPRATROPIUM 0.5 MG NEB (SCH) INH ×3 (03:36→15:43)
[2017-09-13] MEDS ORDERED: CHLORHEXIDINE GLUCONATE 2 % 1 PACK (2 CLOTHS) TOP SCH (04:00)
[2017-09-13] MEDS: PIPERACIL-TAZO 4.5 GM PREMIX 100 ML IV SCH ×3 (05:26→13:40)
[2017-09-13] MEDS: HEPARIN SODIUM - SQ 10,000 UNITS/ML VIAL SQ SCH ×2 (05:46→13:39)
[2017-09-13 06:04] LABS: BLOOD GAS CARBOXYHEMOGLOBIN 1.3 % (0-4); BLOOD GAS HCO3 18 mmol/L (22-26); BLOOD GAS METHEMOGLOBIN 1.1 % (0-2); BLOOD GAS O2 HGB SATURATION 97 % (90-100); BLOOD GAS OXYGEN CONTENT 19.6 Vol % (12.0-20.0); BLOOD GAS PCO2 40 mmHg (38-42); BLOOD GAS PO2 166 mmHg (61-120); BLOOD GAS TOTAL HGB 14.2 G/DL (12.0-16.0); TEMP CORR TO 98.6
[2017-09-13 06:05] LABS: CRITICAL VALUE YES; DRAW SITE RT BRACHIAL; FIO2 80 %; NUMBER OF ARTERIAL PUNCTURES 1; OXYGEN DEVICE VENTILATOR; STAT NO; VENT SETTINGS 14/500/IT0.9/5PEEP
[2017-09-13] MEDS ORDERED: DOCUSATE SODIUM 50 MG/SENNA 8.6 MG TAB PO SCH (09:00)
[2017-09-13] MEDS ORDERED: ZINC SULFATE 220 MG CAP PO SCH (09:00)
[2017-09-13] MEDS ORDERED: SODIUM CHLORIDE 0.9% FLUSH 10 ML FLUSH IV FLUSH SCH (09:00)
[2017-09-13] MEDS ORDERED: ASPIRIN 81 MG CHEW TAB CHEW SCH (09:00)
[2017-09-13] MEDS ORDERED: ASCORBIC ACID 500 MG TAB PO SCH (09:00)
[2017-09-13] MEDS: ARTIFICIAL TEARS OPTH SOLN 15 ML BTL EACH EYE SCH ×2 (09:00→13:00)
[2017-09-13] MEDS ORDERED: MULTIVITAMIN TAB PO SCH (09:00)
[2017-09-13] MEDS ORDERED: FAMOTIDINE 20 MG/2 ML VIAL IV PUSH SCH (09:00)
--- NOTE | 2017-09-13 11:30 | RADRPT ---
EXAM DATE/TIME: 09/13/2017 00:00 [facility] COMPARISON: CT THORAX W/O CONTRAST, September 13, 2017, 2:48. INDICATIONS : Hypotension, respiratory failure, CAD, sepsis TECHNIQUE: Five-station segmental examination of the lower extremities was performed. Pulsed-cuff waveform tracings and pressures were recorded. Ankle-brachial indices and toe-brachial indices were calculated. PRESSURES (mmHg): Brachial (arm): Right IV site Left 106 Calf: Right 63 Left 0 Ankle: Right 55 Left 0 Toe: Right 0 Left 0 JORDAN: Right 0.52 Left 0.00 TBI: Right 0.00 Left 0.00 PULSED CUFF WAVEFORMS: Significantly decreased amplitude at the right ankle. Essentially absent o n the left. CONCLUSION: 1. Findings consistent with significant bilateral, left > right, lower extremity ischemia with suspec tesha prominent inflow component. Yasmani Pollack MD on September 13, 2017 at 11:25 Board Certified Radiologist. This report was verified electronically.
--- NOTE | 2017-09-13 13:24 | EKG ---
Date Performed: 09/12/2017 Time Performed: 22:58:02 PTAGE: 82 years EKG: Sinus rhythm WITH FIRST DEGREE AV BLOCK INFERIOR MYOCARDIAL INFARCTION MODERATE T-WAVE ABNORMALITY, CONSIDER LATE RAL ISCHEMIA ABNORMAL ECG NO PREVIOUS TRACING DOCTOR: Saul Kapadia Interpretating Date/Time 09/13/2017 13:17:09
[2017-09-13] MEDS ORDERED: ALBUMIN 5% INJ 250 ML IV ONE (14:30)
--- NOTE | 2017-09-13 16:56 | ECHRPT ---
Indication: HEART FAILURE CONCLUSIONS The left ventricular systolic function is normal with an estimated ejection fraction in the range of 55-60%. Mild thickening of the mitral valve leaflets. Aortic valve sclerosis is present. There is moderate tricuspid valve regurgitation. The estimated pulmonary arterial pressure is 45.8 mmHg. Mild pulmonary valve regurgitation. BP: 103 / 62 HR: 65 Rhythm: Sinus MEASUREMENTS (Male / Female) Normal Values Technical Quality:Fair 2D ECHO LVOT Diameter 2.3 cm Aortic Root Diameter 3.3 cm M-MODE AV Cusp Separation MM 1.3 cm DOPPLER AV Peak Velocity 128.0 cm/s AV Peak Gradient 6.6 mmHg AV Mean Gradient 3.0 mmHg AV Velocity Time Integral 13.6 cm LVOT Peak Velocity 102.0 cm/s LVOT Peak Gradient 4.2 mmHg LVOT Velocity Time Integral 11.3 cm LVOT Cardiac Index 1761.8 cm/minm AV Area Cont Eq vti 3.5 cm AV Area Cont Eq pk 3.3 cm Mitral E Point Velocity 68.1 cm/s Mitral A Point Velocity 92.3 cm/s Mitral E to A Ratio 0.7 LV E' Lateral Velocity 3.7 cm/s Mitral E to LV E' Lateral Ratio 18.4 LV E' Septal Velocity 5.4 cm/s Mitral E to LV E' Septal Ratio 12.7 TR Peak Velocity 299.0 cm/s TR Peak Gradient 35.8 mmHg Right Atrial Pressure 10.0 mmHg Pulmonary Artery Systolic Pressu 45.8 mmHg Right Ventricular Systolic Press 45.8 mmHg PV Peak Velocity 57.9 cm/s PV Peak Gradient 1.3 mmHg FINDINGS LEFT VENTRICLE The left ventricular systolic function is normal with an estimated ejection fraction in the range of 55-60%. MITRAL VALVE Mild thickening of the mitral valve leaflets. AORTIC VALVE Aortic valve sclerosis is present. TRICUSPID VALVE There is moderate tricuspid valve regurgitation. The estimated pulmonary arterial pressure is 45.8 mmHg. PULMONARY VALVE Mild pulmonary valve regurgitation. Jaswant Larios MD (Electronically Signed) Final Date:13 September 2017 16:56
[2017-09-13] MEDS ORDERED: ATORVASTATIN 40 MG TAB PO SCH (21:00)
== END 2017-09-13 17:00 | disposition short-term general hospital (02) | DRG 871 ==
LOC: NEPE 22:45 → NEDA 09-13 01:00 → HIMN 09-13 03:05
PROVIDERS: ADMIT Internal Medicine Critical Care Medicine; ATTEND Internal Medicine Critical Care Medicine
PROC: 05H533Z Insertion of Infusion Device into Right Subclavian Vein, Percutaneous Approach (ICD-10-PCS; principal; 2017-09-12)
PROC: 5A1935Z Respiratory Ventilation, Less than 24 Consecutive Hours (ICD-10-PCS; 2017-09-12)
PROC: 30233N1 Transfusion of Nonautologous Red Blood Cells into Peripheral Vein, Percutaneous Approach (ICD-10-PCS; 2017-09-12)
DX: A41.9 Sepsis, unspecified organism (principal); J96.91 Respiratory failure, unspecified with hypoxia; N17.9 Acute kidney failure, unspecified; I95.9 Hypotension, unspecified; E87.2 Acidosis; Z95.1 Presence of aortocoronary bypass graft; D64.9 Anemia, unspecified; S71.112A Laceration without foreign body, left thigh, initial encounter; K44.9 Diaphragmatic hernia without obstruction or gangrene; I25.10 Atherosclerotic heart disease of native coronary artery without angina pectoris; X58.XXXA Exposure to other specified factors, initial encounter
CPT/HCPCS: 36430; 36600; 70450; 71010; 71250; 80053; 81001; 82435; 82550; 82565; 82805; 82947; 83605; 83735; 84132; 84295; 84484; 84520; 85025; 85379; 85610; 85730; 86850; 86900; 86901; 86920; 87040; 87070; 87077; 87186; 87205; 87641; 93005; 93306; 93923; 94002; 94003; 94640; 94664; J0610; J1644; J2250; J2543; J3010; J3370; J7030; J7040; J7050; P9016; P9045